=== PATIENT | female | born 1950 | race Caucasian/White ===

== ENCOUNTER 2016-07-23 07:10 | Emergency (ER) | payer BC ==
--- NOTE | ~2016-07-23 | CR170 ---
[facility]. [facility] A Service of [facility] & [facility] RADIOLOGY TEXT RESULTS PATIENT: JORDYN JONES LOCATION: SED : 52 UNIT #: [id number] AGE: [address]: Av Browne MD SEX: F ORDER DR: [id number] [place] [id number] E MR#: [id number] Acc #: [id number] NAME: JORDYN JONES : 1950 SEX: F STUDY DATE/TIME: 07/23/2016 7:05 UNIT: SED ROOM: STUDY DESCRIPTION: CR Knee 2 Views Rt Attending Physician: Av Browne M.D. Ordering Physician: Av Browne M.D. Primary Care Physician: Bunny Wolf M.D. MEDICAL IMAGING REPORT This report is preliminary unless electronic signature is present. EXAM Right knee 2 views, 07/23/2016 COMPARISON 05/03/2014 HISTORY Knee pain. [place] pop last night while walking. FINDINGS There is mild degenerative change but no fracture or other acute abnormality. No evidence of joint effusion. Dictated by... Gunnar Dominguez M.D. THIS IS AN ELECTRONICALLY VERIFIED REPORT Gunnar Dominguez M.D. at 07/23/2016 3:52 PM SANAM/idania TD: 07/23/2016 08:05 JOB #: [id number] MEDICAL IMAGING REPORT Page 1 of 1
[~2016-07-23 07:10] MED LIST: FUROSEMIDE40 MG PO; LEVOXYL150 MC1 PO; PROBIOTIC1 EACH PO
== END 2016-07-23 08:05 | disposition home or self-care (01) ==
LOC: SED 07:10
DX: S83.91XA Sprain of unspecified site of right knee, initial encounter (principal); Z91.040 Latex allergy status; Z79.899 Other long term (current) drug therapy; X50.9XXA Other and unspecified overexertion or strenuous movements or postures, initial encounter
CPT/HCPCS: 29530; 73560; 99283

== ENCOUNTER → 2016-08-14 | Outpatient (CLI) | payer BC, MEDICARE ==
--- NOTE | ~2016-08-14 | BD1 ---
[facility] A Service of [facility] & [facility] RADIOLOGY TEXT RESULTS PATIENT: JORDYN JONES LOCATION: [facility] : 51 UNIT #: [id number] AGE: [address]: LACI KUNZ MD SEX: F ORDER DR: [id number] [facility] [address] [place], [place] [address] [id number] O MR#: [id number] Acc #: [id number] NAME: JORDYN JONES. : 1950 SEX: F STUDY DATE/TIME: 08/14/2016 16:08 UNIT: [facility] ROOM: STUDY DESCRIPTION: BD Dexa Bone Dens 1+ Site Attending Physician: Bunny Kunz M.D. Referring Physician: Bunny Kunz M.D. Ordering Physician: Bunny Kunz M.D. Primary Care Physician: Bunny Kunz M.D. MEDICAL IMAGING REPORT This report is preliminary unless electronic signature is present EXAM DXA scan. DATE OF EXAM 08/14/2016 HISTORY Status post menopause with no hormone replacement therapy. Arthritis. Thyroid medication levothyroxine use for 20 years. Family history of osteoporosis in grandmother. Osteopenia. FINDINGS Bone mineral density in the lumbar spine from L1 through L4 is 0.786 g/cm2 which is 2.4 standard deviations below the mean when compared to the young adult reference population which is characteristic of osteopenia. This is 0.6 standard deviations below the mean when compared to the age-matched population. Bone mineral density in the left femoral neck was 0.541 g/cm2 which is 2.8 standard deviations below the mean when compared to the young adult reference population which is characteristic of osteoporosis. This is 1.2 standard deviations below the mean when compared to the age-matched population. IMPRESSION Bone mineral density in the lumbar spine characteristic of osteopenia and within the left hip characteristic of osteoporosis. Dictated by... Jerry Maher M.D. THIS IS AN ELECTRONICALLY VERIFIED REPORT Jerry Maher M.D. at 08/15/2016 7:48 AM KRT/jt [facility] A Service of [facility] RADIOLOGY TEXT RESULTS PATIENT: JORDYN JONES LOCATION: [facility] #: [id number] : 52 UNIT #: [id number] AGE: [address]: LACI KUNZ MD SEX: F ORDER DR: TD: 08/14/2016 19:42 JOB #: [id number] MEDICAL IMAGING REPORT Page 1 of 1 COPY
--- NOTE | ~2016-08-14 | MY11 ---
[facility] A Service of [facility] & [facility] RADIOLOGY TEXT RESULTS PATIENT: JORDYN JONES LOCATION: [facility] : 52 UNIT #: [id number] AGE: [address]: LACI KUNZ MD SEX: F ORDER DR: [id number] [facility] [address] [place], [place] [address] [id number] O MR#: [id number] Acc #: [id number] NAME: JORDYN JONES : 1950 SEX: F STUDY DATE/TIME: 08/14/2016 15:52 UNIT: [facility] ROOM: STUDY DESCRIPTION: MY Mammogram Screening Dig [place] Ordering Physician: Bunny Kunz M.D. MEDICAL IMAGING REPORT This report is preliminary unless electronic signature is present EXAM Digital screening mammogram 08/14/2016 HISTORY 66-year-old woman, no risk elevation. Annual screening. COMPARISON STUDIES Mammograms 10/20/2009, 07/06/2012, 09/27/2013, 02/16/2015. [place]. FINDINGS Digital imaging of each breast was completed utilizing screening protocol. Review includes FDA-approved CAD device. Breast parenchyma is partially fatty replaced. Residual parenchymal opacities, predominantly anterior third locations of each breast are stable. I see no breast mass. There are no suspicious microcalcifications and no architectural deformity. IMPRESSION Negative mammogram. Annual screening recommended. BIRADS: 1 Negative. Patients over the age of 40 are entered into a reminder system with target due date for the next mammogram. A result letter will also be sent to the patient. Dictated by... Cr Pacheco M.D. THIS IS AN ELECTRONICALLY VERIFIED REPORT Cr Pacheco M.D. at 08/16/2016 8:08 AM DONNA/vanda [facility] A Service of [facility] & [facility] RADIOLOGY TEXT RESULTS PATIENT: JORDYN JONES LOCATION: [facility] : 52 UNIT #: [id number] AGE: [address]: LACI KUNZ MD SEX: F ORDER DR: TD: 08/15/2016 15:43 JOB #: [id number] MEDICAL IMAGING REPORT Page 1 of 1 COPY
== END | disposition home or self-care (01) ==
LOC: CWCC 15:39
DX: Z12.31 Encounter for screening mammogram for malignant neoplasm of breast (principal); Z13.820 Encounter for screening for osteoporosis; Z91.89 Other specified personal risk factors, not elsewhere classified
CPT/HCPCS: 77080; G0202